=== PATIENT | male | born 2000 | race Caucasian/White ===

== ENCOUNTER 2020-01-21 12:29 | Emergency (ER) | payer OTHER ==
[~2020-01-21] VITALS: Ht 175.3 cm; Wt 61.2 kg
[2020-01-21] MEDS ORDERED: CLINDAMYCIN HC300 MG PO (13:03)
[2020-01-21] MEDS ORDERED: VIBRAMYCIN 100100 MG PO (13:03)
[2020-01-21 13:50] VITALS: BP 131/72
== END 2020-01-21 13:50 | disposition home or self-care (01) ==
LOC: M.ERS 12:29
DX: S01.81XA Laceration without foreign body of other part of head, initial encounter (principal); W54.0XXA Bitten by dog, initial encounter; Y93.89 Activity, other specified; Y92.89 Other specified places as the place of occurrence of the external cause; Y99.8 Other external cause status